=== PATIENT | male | born 1955 | race Asian ===

== ENCOUNTER 2018-08-15 11:31 | Emergency (ER) | payer OTHER ==
[~2018-08-15] VITALS: Ht 162.6 cm; Wt 56.7 kg
--- NOTE | 2018-08-15 13:41 | Emergency Room Report ---
History of Present Illness General Chief Complaint: Skin Rash/Abscess Source: Patient Present Illness HPI Mr. Che is a 63 yo male who presents with rash at the buttock and perineum for past 4-5 months. Irritation at the area. Allergies: Coded Allergies: No Known Allergies (Verified , 10/06/08) Patient History Limited by: language barrier Nursing Documentation-[facility] Past Medical History: No Stated History Review of Systems Constitutional: Denies: malaise Skin: Reports: rash All Other Systems: limited Physical Exam Vital Signs Date Time Temp Pulse Resp B/P (MAP) Pulse Ox O2 Delivery O2 Flow Rate FiO2 08/15/18 11:09 98.7 90 16 104/72 98 98.8 Sp02 EP Interpretation: reviewed, normal General Appearance: normal inspection, well appearing, no apparent distress, alert, GCS 15, non-toxic Eyes: bilateral eye normal inspection, bilateral eye PERRL Neck: normal inspection, full range of motion, supple Respiratory: no respiratory distress Neurologic: alert, oriented x3 Psychiatric: normal inspection, judgement/insight normal, memory normal Skin: other - diffuse erythema at buttocks and scrotum with psoriatic plague like changes Medical Decision Making Diagnostic Impression: Primary Impression: Rash and other nonspecific skin eruption ER Course Unclear etiology of rash: psoriasis? cellulitis? pressure ulcer? skin maceration due to body fluid rx: bactrim, keflex, antibiotic ointment Last Vital Signs Date Time Temp Pulse Resp B/P (MAP) Pulse Ox O2 Delivery O2 Flow Rate FiO2 08/15/18 12:14 98.7 08/15/18 11:09 90 16 104/72 98 Status: unchanged Disposition: HOME, SELF-CARE Referrals: NON PHYSICIAN (PCP) Ashley Jose MD Aug 15, 2018 13:41
[2018-08-15] MEDS ORDERED: CEPHALEXIN500 MG ORAL ×2 (13:43)
[2018-08-15] MEDS ORDERED: NEOSPORIN OINT30 GM EXT (13:43)
[2018-08-15] MEDS ORDERED: BACTRIM DS TAB1 EAC1 ORAL (13:43)
[2018-08-15 13:50] VITALS: BP 110/75
== END 2018-08-15 13:50 | disposition home or self-care (01) ==
LOC: EDBD 11:31 → EMR 12:00
DX: R21 Rash and other nonspecific skin eruption (principal)
CPT/HCPCS: 99283